=== PATIENT | male | born 1990 | race Caucasian/White ===

== ENCOUNTER 2017-10-14 20:58 | Emergency (ER) | payer BC, SELFPAY ==
[2017-10-14 21:01] VITALS: BP 153/77; PULSE 79; RESP 17; TEMP 37.1; O2SAT 99; BMI 36.3
--- NOTE | 2017-10-14 22:03 | ED.DCSUM_ITS ---
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 He states that he began to have some mild discomfort this evening. States he has has Welders burn before. Does not wear contacts or glasses. States it feels like sandpaper in his eyes. He notes light sensitivity to light. Physical Examination: Patient has the punctate keratitis. Pain was relieved with tetracaine. Emergency Department Course and Treatment: History and exam are consistent with UV keratitis. He will be started on some Cyclogyl as well as erythromycin ophthalmic ointment. I will write for some [place]. Follow-up with ophthalmology if not improving return if worsening or concerns. Impression: 1. UV keratitis bilateral This note was generated with [employer] dictation software. It may contain incorrect words, spelling, and punctuation that were not noted in review of the chart prior to signing ED Disposition - Plan for ED Patient: Disposition: Home or Assisted Living Chief Complaint: Eye Problem Instructions: ED Keratitis UV Referrals: Devante Carter MD [STAFF PHYSICIAN] - (on Tuesday if not improved) Additional Instructions: The eye ointment is 4 times a day for 4 days He may use the red topped eyedrops 2 drops each eye every 8 hours as needed for comfort [place] as needed for pain.
[2017-10-14] MEDS: HYDROcodone Bitartrate/Apap 5/325 Tablet PO ×2 (22:28→22:29)
[2017-10-14] MEDS: Tetracaine 0.5% Ophthalmic Bottle 1 DRP EACH EYE (22:29)
[2017-10-14] MEDS: Erythromycin Base 1 OPTH.TUBE 1 APPLIC EACH EYE (22:29)
[2017-10-14] MEDS: Fluorescein 1 MG STRIP 1 STRIP EACH EYE (22:30)
== END 2017-10-14 22:49 | disposition home or self-care (01) ==
LOC: ED 22:14
PROVIDERS: Emergency Provider Emergency Medicine
DX: H16.133 Photokeratitis, bilateral (principal); W89.8XXA Exposure to other man-made visible and ultraviolet light, initial encounter; Y93.9 Activity, unspecified; Y92.9 Unspecified place or not applicable; Y99.9 Unspecified external cause status
CPT/HCPCS: 99283